=== PATIENT | male | born 1990 ===

== ENCOUNTER 2021-04-26 21:20 | Emergency (ER) | payer SELFPAY ==
[2021-04-26] MEDS ORDERED: Hydrochlorothiazide 25 MG Tab PO ONE (21:31)
== END 2021-04-26 21:44 | disposition home or self-care (01) ==
LOC: MW.ED 21:20
DX: I10 Essential (primary) hypertension (principal); Z76.0 Encounter for issue of repeat prescription
CPT/HCPCS: 99283; A9270

== ENCOUNTER 2022-08-28 13:32 | Emergency (ER) | payer OTHER ==
[2022-08-28] MEDS ORDERED: Hydrochlorothiazide 25 MG Tab PO ONE (13:58)
[2022-08-28] MEDS ORDERED: Lisinopril 10 MG Tab PO ONE (13:59)
[2022-08-28 14:18] LABS: BASOPHILS PERCENT AUTO 0.4 % (0.0-1.5); EOSINOPHILS ABSOLUTE AUTO 0.1 K/uL (0.0-0.7); EOSINOPHILS PERCENT AUTO 1.6 % (0.0-7.0); HEMATOCRIT 48.8 % (38.0-50.0); LYMPHOCYTES ABSOLUTE AUTO 1.2 K/uL (0.6-2.4); LYMPHOCYTES PERCENT AUTO 25.3 % (16.0-40.0); MEAN CORPUSCULAR HEMOGLOBIN 31.3 pg (27.0-32.0); MEAN CORPUSCULAR HGB CONC 34.8 g/dL (31.0-37.0); MEAN CORPUSCULAR VOLUME 89.7 fL (80.0-98.0); MONOCYTES ABSOLUTE AUTO 0.4 K/uL (0.0-0.8); MONOCYTES PERCENT AUTO 7.3 % (0.0-15.0); NEUTROPHILS ABSOLUTE AUTO 3.2 K/uL (1.4-5.7); NEUTROPHILS PERCENT AUTO 65.4 % (48.0-80.0); PLATELET COUNT,PLT 182 K/uL (150-400); RED BLOOD CELL COUNT 5.44 M/uL (4.50-5.90)
[2022-08-28 14:43] LABS: A/G RATIO 0.9 (0.9-1.6); ALBUMIN 3.7 g/dL (3.4-5.0); BILIRUBIN TOTAL 0.3 mg/dL (0.2-1.0); CALCIUM 9.1 mg/dL (8.5-10.1); CARBON DIOXIDE,CO2 27.7 mmol/L (21.0-32.0); EST CRCL DRUG DOSING (CG) 85.35 mL/min; POTASSIUM,K 4.3 mmol/L (3.5-5.1); PROTEIN TOTAL,TP 7.8 g/dL (6.4-8.2)
== END 2022-08-28 15:23 ==
LOC: MW.ED 13:32
DX: I10 Essential (primary) hypertension (principal); Z91.148 Patient's other noncompliance with medication regimen for other reason
CPT/HCPCS: 36415; 80053; 85025; 93005; 99284; A9270; 93010; 99283